=== PATIENT | female | born 1995 | race Two or more races ===

== ENCOUNTER 2022-08-27 19:43 | Emergency (ER) | payer OTHER ==
[~2022-08-27] VITALS: Ht 162.6 cm; Wt 61.2 kg
[2022-08-27] MEDS ORDERED: ACETAMINOPHEN ES 500 MG TABLET PO ONE (20:30)
--- NOTE | 2022-08-27 20:30 | NUR ---
Dr. Quintana evaluating patient at bedside. MSE in progress.
[2022-08-27] MEDS ORDERED: ACETAMINOPHEN ES 500 MG TABLET ONE (20:38)
--- NOTE | 2022-08-27 20:44 | NUR ---
Patient aox4, ambulatory, clear speech, no facial droop. Patient ambulated to the bathroom indepedently. Steady gait. No signs of distress noted.
[2022-08-27 21:02] LABS: *URINE HCG, QUAL NEGATIVE (NEGATIVE)
[2022-08-27] MEDS ORDERED: ONDA4TAB11 PO (21:35)
--- NOTE | 2022-08-27 21:47 | NUR ---
Patient discharged to home in stable condition. Written and verbal after care instructions given. Patient verbalizes understanding of instructions. Stressed follow up or return to ER for worsening s/s.
[2022-08-27 21:49] VITALS: BP 115/69; TEMP 98.4; O2SAT 98
== END 2022-08-27 21:49 | disposition home or self-care (01) ==
LOC: ER 19:43
DX: S16.1XXA Strain of muscle, fascia and tendon at neck level, initial encounter (principal); S63.502A Unspecified sprain of left wrist, initial encounter; S09.90XA Unspecified injury of head, initial encounter; Z79.899 Other long term (current) drug therapy; V43.52XA Car driver injured in collision with other type car in traffic accident, initial encounter; Y93.89 Activity, other specified; Y92.410 Unspecified street and highway as the place of occurrence of the external cause; Y99.8 Other external cause status
CPT/HCPCS: 70450; 72125; 73110; 84703; A4663; A9150